=== PATIENT | male | born 1950 | race Caucasian/White ===

== ENCOUNTER → 2017-01-26 | Outpatient (CLI) | payer OTHER ==
[~2017-01-26] MED LIST: LISINOPRIL10 MG PO; TETRACYCLINE PO; ULTRAM PO
--- NOTE | ~2017-01-26 | CT71 ---
[facility] A Service [facility] RADIOLOGY TEXT RESULTS PATIENT: MARIAM FERREIRA LOCATION: [facility] : 46 UNIT #: [id number] AGE: [address]: KATIE CHAPPELL MD SEX: M ORDER DR: [id number] [place], [place] [address] [id number] O MR#: [id number] Acc #: [id number] NAME: MARIAM FERREIRA. : 1950 SEX: M STUDY DATE/TIME: 01/26/2017 12:57 UNIT: [facility] ROOM: STUDY DESCRIPTION: CT Head Wo Contrast Attending Physician: Katie Chappell M.D. Referring Physician: Katie Chappell M.D. Ordering Physician: Katie Chappell M.D. Primary Care Physician: Katie Chappell M.D. MEDICAL IMAGING REPORT This report is preliminary unless electronic signature is present EXAM Head CT no contrast 01/26/2017 COMPARISON None. PROCEDURE Axial unenhanced head CT. This CT examination was performed with one or more of the following radiation dose reduction techniques: automatic exposure control, adjustment of mA and/or kV according to patient size, and iterative reconstruction. HISTORY 7 month history of short-term memory loss. COMPARISON None. FINDINGS There is no intracranial hemorrhage or mass or other acute abnormality. There is mild age-appropriate volume loss. There is some slight nonspecific white matter change but brain parenchymal density is overall normal. No acute abnormality is seen and the extracranial soft tissues are unremarkable. The skull base and calvarium are unremarkable. IMPRESSION Mild senescent changes including mild volume loss and minimal nonspecific white matter change, no acute abnormality. [facility] A Service [facility] RADIOLOGY TEXT RESULTS PATIENT: MARIAM FERREIRA LOCATION: [facility] : 46 UNIT #: [id number] AGE: [address]: KATIE CHAPPELL MD SEX: M ORDER DR: Dictated by... Seth Ortiz M.D. THIS IS AN ELECTRONICALLY VERIFIED REPORT Seth Ortiz M.D. at 01/27/2017 3:51 PM TEV/mjs TD: 01/27/2017 09:46 JOB #: [id number] MEDICAL IMAGING REPORT Page 1 of 1 COPY
== END | disposition home or self-care (01) ==
LOC: CCAT 12:30
DX: R68.89 Other general symptoms and signs (principal); G93.89 Other specified disorders of brain
CPT/HCPCS: 70450